=== PATIENT | female | born 1995 | race American Indian/Alaskan Native ===

== ENCOUNTER 2018-05-25 17:20 | Emergency (ER) | payer OTHER, MEDICAID ==
[2018-05-25 17:20] VITALS: BMI 23.0
[2018-05-25 17:30] VITALS: BP 138/84; PULSE 77; RESP 18; TEMP 97.8; O2SAT 100
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
== END 2018-05-25 17:51 | disposition home or self-care (01) ==
LOC: C.ER 17:20
DX: S16.1XXA Strain of muscle, fascia and tendon at neck level, initial encounter (principal); V49.50XA Passenger injured in collision with unspecified motor vehicles in traffic accident, initial encounter